=== PATIENT | female | born 1975 | race Caucasian/White ===

== ENCOUNTER 2017-07-08 17:51 | Inpatient (IN) | payer SELFPAY ==
--- NOTE | 2017-07-08 21:12 | RAD ---
THREE VIEWS OF THE RIGHT THUMB 07/08/17 HISTORY: Pain. FINDINGS: There is soft tissue swelling associated with the distal aspect of the thumb. There is cortical bone loss involving the distal aspect of the first distal phalanx. Findings are suspicious for osteomyelit is. No subcutaneous gas. No radiopaque foreign body. IMPRESSION: Significant soft tissue swelling involving the thumb, particularly distally. There is cortical destru ction involving the tip of the first distal phalanx suggesting osteomyelitis. Followup MRI suggested. POS: FRANCISCO
[2017-07-08 21:40] LABS: Hematocrit 42.6 % (36.0-47.0); Mean Platelet Volume 8.3 fL (7.4-10.4); Red Blood Cell (RBC) Count 4.35 mill/uL (4.20-5.40); White Blood Cell (WBC) Count 4.2 thou/uL (4.8-10.8)
[2017-07-08 21:56] LABS: Lactic Acid - Sepsis 1.5 mmol/L (0.5-2.2)
[2017-07-08 21:57] LABS: Neutrophil 31 % (42-75); Reactive Lymphocytes 3 % (0-10)
[2017-07-08 22:00] LABS: ALT (SGPT) 14 U/L (8-55); AST (SGOT) 22 U/L (5-34); Alkaline Phosphatase 130 U/L (40-150); Anion Gap 13 mmol/L (10-20); BUN (Urea Nitrogen) 8 mg/dL (7.0-18.7); Bilirubin, Total 0.3 mg/dL (0.2-1.2); Calc. Creatinine Clearance 0 mL/min (70-130); Calcium 8.9 mg/dL (7.8-10.44); Carbon Dioxide 20 mmol/L (22-29); Chloride 106 mmol/L (98-107); Estimated GFR-MDRD 76; Globulin 3.8 g/dL (2.4-3.5); Protein, Total 7.6 g/dL (6.0-8.3)
[2017-07-08] MEDS ORDERED: Dextrose 50% Abboject 50 ML SYRINGE SLOW IVP PRN (23:29)
[2017-07-08] MEDS ORDERED: cefTRIAXone\\ROCEPHIN 1 GM in Sodium Chloride 0.9% 100 ML IVPB SCH (23:29)
[2017-07-08] MEDS ORDERED: Guaifenesin DM 100-10/5 ML UDCUP PO PRN (23:29)
[2017-07-08] MEDS ORDERED: Acetaminophen 325 MG TAB PO PRN (23:29)
[2017-07-08] MEDS ORDERED: Dextrose 5% in Water 1,000 ML IV PRN (23:29)
[2017-07-08] MEDS ORDERED: HumaLOG 300 UNITS/3 ML VIAL SC PRN (23:29)
[2017-07-08] MEDS ORDERED: VANCOMYCIN IVPB PRN (23:37)
[2017-07-08] MEDS ORDERED: Vancomycin HCl 1.5 GM in Sodium Chloride 0.9% 250 ML 300 ML IVPB SCH (23:45)
[2017-07-09] MEDS: cefTRIAXone\\ROCEPHIN 1 GM, Syringe 0.4 ML in Sterile Water 9.6 ML SLOW IVP SCH (00:26)
[2017-07-09] MEDS ORDERED: VANCOMYCIN IVPB PRN (00:28)
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
[2017-07-09 05:41] LABS: Hemoglobin A1c 5.2 % (4.0-6.0)
[2017-07-09 06:33] LABS: Hematocrit 42.1 % (36.0-47.0); Mean Platelet Volume 8.8 fL (7.4-10.4); Neutrophil 30 % (42-75); Red Blood Cell (RBC) Count 4.28 mill/uL (4.20-5.40); White Blood Cell (WBC) Count 4.8 thou/uL (4.8-10.8)
[2017-07-09 06:49] LABS: Anion Gap 11 mmol/L (10-20); BUN (Urea Nitrogen) 12 mg/dL (7.0-18.7); Calc. Creatinine Clearance 131 mL/min (70-130); Calcium 9.1 mg/dL (7.8-10.44); Carbon Dioxide 24 mmol/L (22-29); Chloride 107 mmol/L (98-107); Estimated GFR-MDRD 81
[2017-07-09] MEDS: Enoxaparin Sodium 40 MG/0.4 ML SYRINGE SC SCH (07:52)
[2017-07-09] MEDS: Famotidine 20 MG TAB PO SCH ×2 (07:52→20:34)
--- NOTE | 2017-07-09 08:43 | PDOC.PN ---
- Subjective Encounter Start Date: 07/09/17 Encounter Start Time: 15:25 Subjective: Attempted to see patient multiple times throughout the morning. Always down -: smoking. - Objective Resuscitation Status: Resuscitation Status FULL:Full Resuscitation MAR Reviewed: Yes Vital Signs & Weight: Vital Signs (12 hours) Temp Pulse Resp BP Pulse Ox 07/09/17 07:31 98.2 F 63 16 91/60 97 07/09/17 05:00 97.7 F 62 16 101/70 95 07/08/17 22:30 97.6 F 59 L 20 138/87 94 L Weight Weight 195 lb 1.745 oz I&O: 07/08/17 07/09/17 07/10/17 06:59 06:59 06:59 Intake Total 420 Balance 420 Result Diagrams: 07/09/17 04:20 07/09/17 04:20 Additional Labs: Accuchecks 07/09/17 05:06 POC Glucose 97 Dx/Plan (1) Osteomyelitis of finger of right hand Code(s): M86.9 - OSTEOMYELITIS, UNSPECIFIED Status: Acute Comment: right thumb, growing back proteus, on Rocephin and Vancomycin (2) Tobacco dependence due to cigarettes Code(s): F17.210 - NICOTINE DEPENDENCE, CIGARETTES, UNCOMPLICATED Status: Chronic - Plan cont current plan of care, continue antibiotics, DVT proph w/lovenox, DVT proph w/SCDs Plan for surgery per consult note. * .
[2017-07-09] MEDS ORDERED: FLU VACC QS2017-18 36 mo. & older 0.5 ML SYRINGE IM ONE (09:00)
[2017-07-09] MEDS ORDERED: Vancomycin HCl 1 GM in Premix Bag 1 BAG IVPB SCH (09:00)
[2017-07-09] MEDS ORDERED: Propofol 200 MG/20 ML VIAL ONE (11:59)
[2017-07-09] MEDS: Vancomycin HCl 1.25 GM in Sodium Chloride 0.9% 250 ML 250 ML IVPB SCH ×2 (12:13→23:54)
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
[2017-07-09] MEDS ORDERED: Fentanyl 100 MCG/2 ML VIAL ONE (14:42)
[2017-07-09] MEDS ORDERED: Midazolam HCl 2 mg/2 ml Vial ONE (14:42)
[2017-07-09] MEDS ORDERED: Bupivacaine 0.25% HCL 30 ML VIAL ONE (15:11)
[2017-07-09] MEDS ORDERED: Neomycin-Polymyxin 1 ML AMP ONE (15:28)
--- NOTE | 2017-07-09 17:32 | OP ---
DATE OF SERVICE: 07/09/2017 PREOPERATIVE DIAGNOSES: Severe infection in the distal phalanx of the right thumb with osteomyelitis of the distal aspect of the distal phalanx and abscess formation. POSTOPERATIVE DIAGNOSES: Severe infection in the distal phalanx of the right thumb with osteomyeliti s of the distal aspect of the distal phalanx and abscess formation. PROCEDURE: Irrigation and debridement of the right thumb. SURGEON: Simone Baeza M.D. ANESTHESIA: TIVA with a digital block on the right thumb using 0.25% Marcaine plain. TECHNIQUE: The patient was taken to the operating room. She was given IV sedation and the right chavez d, wrist and forearm were sterilely prepped and draped in the usual fashion. A 20 mL 0.25% Marcaine plain was used at the base of the thumb for digital block. The patient already had an open draining on the dorsal radial aspect at the base of the left thumb nail. An incision was made extending along the ulnar aspect of the thumb just ulnar to the nail and extending down to the base of the nail. Bl unt dissection was made and the abscess was located in the palmar aspect of the thumb over the distal phalanx. It was irrigated. There was loss of the distal aspect of the distal phalanx and this area was cleaned up using a rongeur and curette. All of the infected appearing tissue was debrided and t hen copiously irrigated using antibiotic solution using the high-speed director of student financial services. The wound was then very loosely approximated using two of the 3-0 Rapide. Sterile dressing was applied. The quarter i [facility] Gallo drain that was used to the base of thumb for tourniquet was removed and the patient was t ransferred to the recovery room in stable condition. ESTIMATED BLOOD LOSS: None. COMPLICATIONS: None.
[2017-07-09] MEDS: traMADol HCl 50 MG TAB PO PRN (20:33)
[2017-07-09] MEDS: Morphine 2 mg/2ml in 0.9% NaCl PF SYRINGE SLOW IVP PRN (23:54)
[2017-07-10] MEDS: cefTRIAXone\\ROCEPHIN 1 GM, Syringe 0.4 ML in Sterile Water 9.6 ML SLOW IVP SCH ×2 (00:01→23:02)
[2017-07-10] MEDS: Temazepam 15 MG CAP PO PRN ×2 (00:05→23:03)
[2017-07-10] MEDS: traMADol HCl 50 MG TAB PO PRN ×2 (07:49→17:58)
[2017-07-10] MEDS: Famotidine 20 MG TAB PO SCH ×2 (07:49→20:49)
[2017-07-10] MEDS: Enoxaparin Sodium 40 MG/0.4 ML SYRINGE SC SCH (07:49)
[2017-07-10] MEDS: Morphine 2 mg/2ml in 0.9% NaCl PF SYRINGE SLOW IVP PRN ×3 (07:51→23:03)
[2017-07-10 11:36] LABS: Vancomycin, Trough 12.7 ug/mL
[2017-07-10] MEDS: Vancomycin HCl 1.5 GM in Sodium Chloride 0.9% 250 ML 300 ML IVPB SCH ×2 (12:37→23:02)
--- NOTE | 2017-07-10 15:39 | PDOC.PN ---
- Subjective Encounter Start Date: 07/10/17 Encounter Start Time: 10:50 Subjective: feels better, still not able to freely move her thumb due to pain - Objective Resuscitation Status: Resuscitation Status FULL:Full Resuscitation MAR Reviewed: Yes Vital Signs & Weight: Vital Signs (12 hours) Temp Pulse Resp BP Pulse Ox 07/10/17 11:16 97.6 F 57 L 16 114/74 97 07/10/17 08:00 98.1 F 67 16 97 07/10/17 07:53 98.1 F 67 16 113/69 97 Weight Weight 195 lb 1.745 oz I&O: 07/09/17 07/10/17 07/11/17 06:59 06:59 06:59 Intake Total 420 500 Balance 420 500 Result Diagrams: 07/09/17 04:20 07/09/17 04:20 Additional Labs: Accuchecks 07/10/17 07/10/17 07/09/17 11:01 05:41 21:15 POC Glucose 139 H 93 145 H 07/09/17 16:36 POC Glucose 239 H Phys Exam - Physical Examination HEENT: PERRLA, moist MMs Neck: no JVD, supple Respiratory: no wheezing, no rales Cardiovascular: RRR, no significant murmur Gastrointestinal: soft, non-tender, positive bowel sounds Musculoskeletal: no edema, pulses present Neurological: non-focal, moves all 4 limbs Psychiatric: A&O x 3 Dx/Plan (1) Osteomyelitis of finger of right hand Code(s): M86.9 - OSTEOMYELITIS, UNSPECIFIED Status: Acute Comment: right thumb, growing back proteus, on Rocephin and Vancomycin (2) Tobacco dependence due to cigarettes Code(s): F17.210 - NICOTINE DEPENDENCE, CIGARETTES, UNCOMPLICATED Status: Chronic - Plan dc plan in am if ok with -: is on ceft and vanc -: likely levaquin for dc plan or cipro with flagyl -: HbA1c is 5.2, glucose intolerance or early diabetic * . Review of Systems - Medications/Allergies Allergies/Adverse Reactions: Allergies Allergy/AdvReac Type Severity Reaction Status Date / Time No Known Allergies Allergy Verified 07/08/17 23:03 Medications: Current Medications Acetaminophen (Tylenol) 650 mg PO Q4H PRN PRN Reason: Headache/Fever or Pain Last Admin: 07/09/17 12:23 Dose: 650 mg Dextrose/Water (Dextrose 50%) 25 gm SLOW IVP PRN PRN PRN Reason: Hypoglycemia Enoxaparin Sodium (Lovenox) 40 mg SC 0900 [facility] Last Admin: 07/10/17 07:49 Dose: 40 mg Famotidine (Pepcid) 20 mg PO BID [facility] Last Admin: 07/10/17 07:49 Dose: 20 mg Glucagon (Glucagon) 1 mg IM PRN PRN PRN Reason: Hypoglycemia Guaifenesin/Dextromethorphan (Robitussin Dm) 15 ml PO Q4H PRN PRN Reason: Cough Dextrose/Water (D5w) 1,000 mls @ 0 mls/hr IV .Q0M PRN; As Directed PRN Reason: Hypoglycemia Ceftriaxone Sodium 1 gm/ (Syringe 0.4 ml/ Sterile Water) 10 mls @ 120 mls/hr SLOW IVP 2359 LAYLA Last Admin: 07/10/17 00:01 Dose: 10 mls Vancomycin HCl 1.5 gm/ Sodium (Chloride) 300 mls @ 200 mls/hr IVPB 1200,2359 [facility] Last Admin: 07/10/17 12:37 Dose: 300 mls Insulin Human Lispro (Humalog) 0 units SC .MILD SLIDING SCALE PRN PRN Reason: Mild Correctional Scale Miscellaneous Medication (Pharmacy To Dose) 1 each IVPB PRN PRN PRN Reason: OSTEOMYELITIS Morphine Sulfate/Sodium Chloride (Morphine 0.9% Nacl Pf 2 Mg/2ml) 2 mg SLOW IVP Q4H PRN PRN Reason: Chest Pain/BP Elevations Last Admin: 07/10/17 12:10 Dose: 2 mg Temazepam (Restoril) 15 mg PO HSPRN PRN PRN Reason: Insomnia Last Admin: 07/10/17 00:05 Dose: 15 mg Tramadol HCl (Ultram) 50 mg PO Q6H PRN PRN Reason: Pain Last Admin: 07/10/17 07:49 Dose: 50 mg
[2017-07-11] MEDS: Morphine 2 mg/2ml in 0.9% NaCl PF SYRINGE SLOW IVP PRN ×2 (05:48→11:35)
[2017-07-11 07:38] VITALS: BP 110/76; TEMP 97.6
[2017-07-11] MEDS: Famotidine 20 MG TAB PO SCH (08:19)
[2017-07-11] MEDS: Enoxaparin Sodium 40 MG/0.4 ML SYRINGE SC SCH (08:20)
--- NOTE | 2017-07-11 11:38 | PDOC.PN ---
- Subjective Encounter Start Date: 07/11/17 Encounter Start Time: 10:25 Subjective: feels better - Objective Resuscitation Status: Resuscitation Status FULL:Full Resuscitation MAR Reviewed: Yes Vital Signs & Weight: Vital Signs (12 hours) Temp Pulse Resp BP Pulse Ox 07/11/17 08:00 97.6 F 61 16 95 07/11/17 07:36 97.6 F 61 16 110/76 95 Weight Weight 195 lb 1.745 oz I&O: 07/10/17 07/11/17 07/12/17 06:59 06:59 06:59 Intake Total 500 2750 Balance 500 2750 Result Diagrams: 07/09/17 04:20 07/09/17 04:20 Additional Labs: Accuchecks 07/11/17 07/10/17 05:43 18:33 POC Glucose 92 174 H Phys Exam - Physical Examination HEENT: PERRLA, moist MMs Neck: no JVD, supple Respiratory: no wheezing, no rales Cardiovascular: RRR, no significant murmur Gastrointestinal: soft, non-tender, positive bowel sounds Musculoskeletal: no edema, pulses present right thumb in dressing Neurological: non-focal, moves all 4 limbs Psychiatric: A&O x 3 Dx/Plan (1) Osteomyelitis of finger of right hand Code(s): M86.9 - OSTEOMYELITIS, UNSPECIFIED Status: Acute Comment: right thumb, growing back proteus, on Rocephin and Vancomycin (2) Tobacco dependence due to cigarettes Code(s): F17.210 - NICOTINE DEPENDENCE, CIGARETTES, UNCOMPLICATED Status: Chronic - Plan hemostable -: dc pt home if ok with and family learns to do dressing changes -: augmentin for 1 week. * .
[2017-07-11] MEDS: Vancomycin HCl 1.5 GM in Sodium Chloride 0.9% 250 ML 300 ML IVPB SCH (12:18)
--- NOTE | 2017-07-11 22:04 | DIS ---
DATE OF ADMISSION: 07/08/2017 DATE OF DISCHARGE: 07/11/2017 DISCHARGE DISPOSITION: To home. PRIMARY DISCHARGE DIAGNOSES: Osteomyelitis of right thumb status post debridement, tobacco dependence. PROCEDURES DONE DURING HOSPITALIZATION: The patient has had finger x-ray done on the day of admission which showed significant soft tissue swelling involving thumb, particularly distally. There was cortical destruction involving tip of the first distal phalanx suggesting osteomyelitis. The patient has had irrigation and debridement of right thumb done by Dr. Baeza on 07/09/2017. Blood cultures x2 no growth. Hemoglobin A1c is 5.2. DISCHARGE MEDICATIONS: Augmentin 875 mg p.o. twice daily for a period of 7 days , Motrin p.r.n. for pain. ALLERGIES: No known drug allergies. INPATIENT CONSULTS: Dr. Felisha Nichols for Orthopedics. BRIEF COURSE DURING HOSPITALIZATION: The patient initially got admitted for increasing pain, swelling, and discharge from her right thumb. She was admitted for osteomyelitis and felon of right first distal phalanx. She has had consultation with Dr. Baeza. Patient was on broad spectrum IV antibiotics and has been transitioned over to Augmentin at the time of discharge. She has had irrigation and debridement done by Dr. Baeza. Postoperatively, the patient is hemodynamically stable. She will be taught how to do the dressing changes. She needs to follow up with Dr. Baeza as advised and primary care physician in 1 week. She was counseled with regards to medication compliance with antibiotics. She is hemodynamically stable and will be shortly discharged home. Please see a [id number] documentation on [facility] for the day of discharge. ENA
--- NOTE | 2017-07-12 17:44 | PQF ---
Lety Hernandez WADE W MD [id number] CLINICAL DOCUMENTATION CLARIFICATION FORM: POST DISCHARGE Addendum to original discharge summary date: ____ Late entry note date: __ DATE: 07/12/2017 ATTN: Dr. Baeza Please exercise your independent, professional judgment in responding to the clarification form. Clinical indicators are provided on the bottom of this form for your review Please confirm the procedure that was performed on this patient on 07/09/17 Please check appropriate box(s): [ ] Excisional Debridement: [ ] Excised [ ] Cut away [ ] Other: Depth / layer: (deepest layer of debridement): [ ] Skin[ ] SubQ Tissue [ ] Fascia [ ] Muscle [ ] Tendon [ ] Bone Appearance of wound: (e.g., down to fresh bleeding tissue, etc.) Margins: (please specify): / x x Instruments used: [ ] Scissors [ ] Scalpel [ ] Curette [ ] Soft tissue clipper [ ] Other: [ ] Non-excisional Debridement: (Removal by ?ushing, brushing, chemical, or washing) [ ] Incision and Drainage only (No Debridement): Depth:[ ] Skin [ ] Sub Q[ ] Into soft tissue [ ] Escharectomy [ ] Other procedure diagnosis [ ] Unable to determine CLINICAL INDICATORS - SIGNS / SYMPTOMS / LABS I&D Cutting away of tissue (e.g., scissors, scalpel, curette, etc.) Debridement Removal of or excision of necrotic devitalized tissue or slough RISK FACTORS Bedridden/Immobile patient Infected/gangrenous ulcer or wound TREATMENTS: Surgical intervention MTDD
== END 2017-07-11 14:32 | disposition home or self-care (01) | DRG 540 ==
LOC: ERS 17:51 → T4-B 20:45
PROVIDERS: ADMIT Internal Medicine; ATTEND Internal Medicine
PROC: 0J9J00Z Drainage of Right Hand Subcutaneous Tissue and Fascia with Drainage Device, Open Approach (ICD-10-PCS; principal; 2017-07-09)
DX: M86.141 Other acute osteomyelitis, right hand (principal); L02.511 Cutaneous abscess of right hand; F17.210 Nicotine dependence, cigarettes, uncomplicated
CPT/HCPCS: 36415; 36416; 80048; 80053; 80202; 83036; 83605; 85025; 87040; A4216; J0696; J1650; J2250; J2270; J2704; J3010; J3370; J7050; S0020